=== PATIENT | male | born 1955 | race African-American/Black ===

== ENCOUNTER 2017-12-19 14:44 | Emergency (ER) | payer OTHER, MEDICAID ==
[~2017-12-19] VITALS: Ht 172.7 cm; Wt 56.0 kg
[2017-12-19] MEDS ORDERED: HYDROCODONE/ACETAMINOPHEN 5/325MG TABLET PO ONE (16:30)
[2017-12-19] MEDS ORDERED: ONDANSETRON 4MG ODT PO ONE (16:30)
[2017-12-19 16:55] VITALS: BP 152/99
== END 2017-12-19 16:56 | disposition left against medical advice (07) ==
LOC: ER 14:44
DX: S42.018A Nondisplaced fracture of sternal end of left clavicle, initial encounter for closed fracture (principal); I10 Essential (primary) hypertension; V18.0XXA Pedal cycle driver injured in noncollision transport accident in nontraffic accident, initial encounter; Y93.89 Activity, other specified; Y92.488 Other paved roadways as the place of occurrence of the external cause
CPT/HCPCS: 73030; 99284; Q0162

== ENCOUNTER 2018-12-17 18:12 | Emergency (ER) | payer MEDICARE, MEDICAID, OTHER ==
[~2018-12-17] VITALS: Ht 172.7 cm; Wt 66.0 kg
[2018-12-17 18:28] VITALS: BP 126/83
== END 2018-12-17 19:37 | disposition left against medical advice (07) ==
LOC: ER 18:12
DX: Z53.21 Procedure and treatment not carried out due to patient leaving prior to being seen by health care provider (principal)

== ENCOUNTER 2019-12-01 09:12 | Emergency (ER) | payer BC, MEDICAID, OTHER ==
[~2019-12-01] VITALS: Ht 172.7 cm; Wt 65.0 kg
[2019-12-01 09:14] VITALS: BP 147/94
== END 2019-12-01 10:27 | disposition left against medical advice (07) ==
LOC: ER 09:12
DX: R42 Dizziness and giddiness (principal); I10 Essential (primary) hypertension
CPT/HCPCS: 99281

== ENCOUNTER 2020-02-21 09:56 | Emergency (ER) | payer BC, MEDICAID, OTHER ==
[~2020-02-21] VITALS: Ht 172.7 cm; Wt 62.0 kg
[2020-02-21 11:09] VITALS: BP 116/83
== END 2020-02-21 11:15 | disposition home or self-care (01) ==
LOC: ER 09:56
DX: S09.8XXA Other specified injuries of head, initial encounter (principal); V49.49XA Driver injured in collision with other motor vehicles in traffic accident, initial encounter; Y93.89 Activity, other specified; Y92.89 Other specified places as the place of occurrence of the external cause; Y99.8 Other external cause status; I10 Essential (primary) hypertension; Z87.891 Personal history of nicotine dependence
CPT/HCPCS: 93005; 99283